=== PATIENT | male | born 1990 | race African-American/Black ===

== ENCOUNTER 2024-06-10 15:15 | Emergency (ER) | payer OTHER ==
[~2024-06-10] VITALS: Ht 180.3 cm; Wt 65.8 kg
[2024-06-10 15:21] VITALS: BP 116/69; PULSE 68; RESP 16; TEMP 98; O2SAT 98
== END 2024-06-10 19:02 | disposition home or self-care (01) ==
LOC: ER 15:15
DX: J06.9 Acute upper respiratory infection, unspecified (principal); B97.89 Other viral agents as the cause of diseases classified elsewhere
CPT/HCPCS: 99282